=== PATIENT | male | born 1960 | race Two or more races ===

== ENCOUNTER 2024-06-15 22:41 | Inpatient (IN) | payer OTHER ==
[~2024-06-15] VITALS: Ht 182.9 cm; Wt 141.1 kg
[~2024-06-15 22:41] MED LIST: ALBU108A5 IN; APIX5TAB PO; ATOR40TA52 PO; BISO5TAB44 PO; CEPH500C PO; FURO1TAB77 PO; FURO80TA3 PO; GABA-1308 PO; INSUINJ2 SC; PANT40T PO; SEVE800T8 PO; TIOT17SP INH
[2024-06-15 22:45] VITALS: PULSE 83; RESP 11; O2SAT 100
[2024-06-15 23:26] LABS: Urine Bacteria None Seen /hpf (None Seen); Urine Blood 1+ /uL (Negative); Urine Clarity Clear (Clear); Urine Color Light-Yellow (Yellow); Urine Hyaline Cast FEW /lpf (0 - 2); Urine Mucus FEW (None Seen); Urine Protein, UAD Negative (Negative); Urine Specific Gravity 1.009 (1.001-1.035); Urine Urobilinogen Normal (Negative); Urine WBC None Seen /hpf (0 - 5); Urine pH 5.5 (5.0-9.0)
[2024-06-15] MEDS: SODIUM CHLORIDE 0.9% 1,000 ML IV ONE (23:29)
[2024-06-15 23:57] LABS: Basophils # (auto) 0.1 10 ^3/uL (0-0.2); Hemoglobin 10.3 g/dL (12.2-16.2); Monocytes # (auto) 0.9 10 ^3/uL (0-1.3); Neutrophils # (auto) 9.7 10 ^3/uL (1.6-8.6); White Blood Cell 11.7 10^3/uL (4.4-10.8)
[2024-06-15 23:59] LABS: Basophils % (auto) 0.8 % (0.0-2.0); Eosinophils # (auto) 0.2 10 ^3/uL (0-0.8); Hematocrit 34.1 % (36.0-46.0); Lymphocytes # (auto) 0.8 10 ^3/uL (0.4-5.4); Lymphocytes % (auto) 6.5 % (10.0-50.0); Mean Corpuscular Hemoglobin 29.8 pg (28.0-32.0); Mean Corpuscular Hgb Conc. 30.2 g/dL (32.0-36.0); Monocytes % (auto) 7.7 % (0.0-12.0); Nucleated Red Blood Cells % 0.6 %; Platelet Count (auto) 226 10^3/uL (140-450); Red Blood Cells 3.45 10^6/uL (4.0-5.20)
[2024-06-16] VITALS (34 sets, daily range): BP systolic 86–174; BP diastolic 30–100; PULSE 70–159; RESP 14–36; TEMP 97.4–99.4; O2SAT 85–100
[2024-06-16 00:18] LABS: Alanine Aminotransferase 27 U/L (7-40); Albumin 3.8 g/dL (3.2-4.8); Alkaline Phosphatase 153 U/L (46-116); Anion Gap 9 (5-15); Aspartate Aminotransferase 27 U/L (13-40); BUN/Creatinine Ratio 7.5 (10.0-20.0); Bilirubin, Total 0.4 mg/dL (0.2-1.0); Blood Urea Nitrogen 60 mg/dL (9-23); Calcium 9.1 mg/dL (8.7-10.4); Carbon Dioxide 31 mmol/L (20-31); Chloride 98 mmol/L (98-107); Glucose 164 mg/dL (74-106); Sodium 138 mmol/L (136-145)
[2024-06-16 00:21] LABS: Anisocytosis Slight
[2024-06-16 00:22] LABS: Stomatocytes Many
[2024-06-16 00:23] LABS: Large Platelets FEW; Platelet Estimate Adequa
[2024-06-16 00:24] LABS: INR 1.3 (0.9-1.15); Partial Thromboplastin Time 27.3 SEC (24.5-34.5); Prothrombin Time 13.5 sec (9.3-11.8)
[2024-06-16] MEDS: PIPERACILLIN-TAZOB 3.375GM 100 ML IV ONE (01:27)
[2024-06-16] MEDS: AZITHROMYCIN 500MG/ 250ML 250 ML IV ONE (02:41)
[2024-06-16] MEDS: NOREPINEPHRINE 8 MG/250ML KIT 250 ML IV SCH (02:42)
[2024-06-16] MEDS ORDERED: NITROGLYCERIN 0.4 MG SL TAB SL PRN (03:15)
[2024-06-16] MEDS ORDERED: MORPHINE SULFATE INJ 2 MG/ml SYRG IV PRN (03:15)
[2024-06-16] MEDS ORDERED: VANCOMYCIN PER PHARMACY 0 MG IV SCH (03:30)
[2024-06-16] MEDS ORDERED: DEXTROSE (50%) 50ML SYRG IV PRN ×2 (03:45→12:30)
[2024-06-16] MEDS: HEPARIN DRIP/D5W 100UNITS/ML 250 ML IV SCH ×3 (04:00→20:30)
[2024-06-16 04:27] LABS: Eosinophils # (auto) 0.3 10 ^3/uL (0-0.8); Hemoglobin 10.1 g/dL (13.5-17.5); Lymphocytes # (auto) 0.8 10 ^3/uL (0.4-5.4); Monocytes # (auto) 1.1 10 ^3/uL (0-1.3); Monocytes % (auto) 7.9 % (0.0-12.0); Nucleated Red Blood Cells % 0.3 %
[2024-06-16 04:28] LABS: Basophils # (auto) 0 10 ^3/uL (0-0.2); Basophils % (auto) 0.3 % (0.0-2.0); Eosinophils % (auto) 2.3 % (0.0-7.0); Hematocrit 33.6 % (41.0-53.0); Lymphocytes % (auto) 6.2 % (10.0-50.0); Mean Corpuscular Hemoglobin 29.7 pg (28.0-32.0); Mean Corpuscular Hgb Conc. 30.1 g/dL (32.0-36.0); Mean Corpuscular Volume 98.5 fL (80.0-100.0); Neutrophils # (auto) 11.1 10 ^3/uL (1.6-8.6); Neutrophils % (auto) 83.3 % (37.0-80.0); Platelet Count (auto) 235 10^3/uL (140-450); Red Blood Cells 3.42 10^6/uL (4.5-5.90); White Blood Cell 13.3 10^3/uL (4.4-10.8)
[2024-06-16 04:29] LABS: Red Cell Distribution Width 22.3 % (11.8-14.3)
[2024-06-16] MEDS: ACCU-CHEK COMFORT CURVE STRIP VI SCH ×2 (04:30→17:53)
[2024-06-16] MEDS: FUROSEMIDE 40 MG/4 ML VIAL IV SCH (04:31)
[2024-06-16] MEDS: HEPARIN SODIUM (PORCINE) 5000 UNITS/ML 1ML VIAL IV ONE (04:35)
[2024-06-16 04:43] LABS: INR 1.33 (0.9-1.15); Partial Thromboplastin Time 27.6 SEC (24.5-34.5); Prothrombin Time 13.8 sec (9.3-11.8)
[2024-06-16] MEDS: InsuLIN REG 1unit/0.01ml Soln (100units/ml) SC SCH ×2 (04:47→17:58)
[2024-06-16] MEDS: CEFEPIME 2GM/50ML NS 50 ML IV ONE (05:48)
[2024-06-16 08:11] LABS: COVID19 ANTIGEN SOFIA FIA NEGATIVE (NEGATIVE)
[2024-06-16 08:12] LABS: Rapid Influenza A Negative (Negative); Rapid Influenza B Negative (Negative)
[2024-06-16] MEDS ORDERED: DEXTROSE (50%) 50ML SYRG IV SCH (09:45)
[2024-06-16 10:11] LABS: Magnesium 2.4 mg/dL (1.6-2.6)
[2024-06-16 10:13] LABS: Phosphorus 7.5 mg/dL (2.4-5.1)
[2024-06-16] MEDS ORDERED: ACCU-CHEK COMFORT CURVE STRIP VI SCH (12:00)
[2024-06-16] MEDS ORDERED: InsuLIN REG 1unit/0.01ml Soln (100units/ml) SC SCH (12:00)
[2024-06-16 12:09] LABS: INR 1.36 (0.9-1.15); Prothrombin Time 14.1 sec (9.3-11.8)
[2024-06-16 12:55] LABS: Base Excess -2.6 mmol/L (-2.0-3.0)
[2024-06-16] MEDS ORDERED: MIDODRINE HCL 10 MG TAB PO PRN ×2 (13:00→16:45)
[2024-06-16 14:57] LABS: Base Excess -3.1 mmol/L (-2.0-3.0)
[2024-06-16] MEDS: MIDODRINE HCL 10 MG TAB PO SCH (17:54)
[2024-06-16 18:46] LABS: INR 1.35 (0.9-1.15); Partial Thromboplastin Time 44.5 SEC (24.5-34.5)
[2024-06-16 20:52] LABS: Base Excess 1.5 mmol/L (-2.0-3.0)
[2024-06-16] MEDS: HYDROCORTISONE ACET 25 MG RECTAL SUPP PR ONE (21:00)
[2024-06-16] MEDS: ACETAMINOPHEN 650 mg PER 20.3 mL UD GT PRN (21:35)
[2024-06-16] MEDS: NYSTATIN TOPICAL POWDER 15GM TOP SCH (22:47)
[2024-06-16] MEDS: EPOETIN ALFA-EPBX 10,000 UNIT/1ML VIAL SC ONE (22:47)
[2024-06-17] VITALS (106 sets, daily range): BP systolic 82–154; BP diastolic 23–117; PULSE 59–156; RESP 12–25; TEMP 98.3–99.1; O2SAT 60–100
[2024-06-17] MEDS: ACETAMINOPHEN 325 MG TAB PO ONE (00:31)
[2024-06-17 04:25] LABS: Basophils # (auto) 0.1 10 ^3/uL (0-0.2); Basophils % (auto) 0.7 % (0.0-2.0); Eosinophils # (auto) 0.1 10 ^3/uL (0-0.8); Eosinophils % (auto) 0.5 % (0.0-7.0); Hematocrit 33.8 % (41.0-53.0); Hemoglobin 10.6 g/dL (13.5-17.5); Lymphocytes # (auto) 0.9 10 ^3/uL (0.4-5.4); Lymphocytes % (auto) 5.6 % (10.0-50.0); Mean Corpuscular Hemoglobin 30.6 pg (28.0-32.0); Mean Corpuscular Hgb Conc. 31.4 g/dL (32.0-36.0); Mean Corpuscular Volume 97.6 fL (80.0-100.0); Monocytes # (auto) 1.3 10 ^3/uL (0-1.3); Neutrophils # (auto) 14.1 10 ^3/uL (1.6-8.6); Neutrophils % (auto) 85.2 % (37.0-80.0); Nucleated Red Blood Cells % 0.4 %; Platelet Count (auto) 238 10^3/uL (140-450); Red Blood Cells 3.47 10^6/uL (4.5-5.90); White Blood Cell 16.5 10^3/uL (4.4-10.8)
[2024-06-17 04:43] LABS: Alanine Aminotransferase 27 U/L (7-40); Albumin 3.8 g/dL (3.2-4.8); Alkaline Phosphatase 153 U/L (46-116); Anion Gap 13 (5-15); Aspartate Aminotransferase 21 U/L (13-40); BUN/Creatinine Ratio 6.9 (10.0-20.0); Blood Urea Nitrogen 52 mg/dL (9-23); Calcium 9.3 mg/dL (8.7-10.4); Carbon Dioxide 26 mmol/L (20-31); Chloride 98 mmol/L (98-107); Glucose 144 mg/dL (74-106); Sodium 137 mmol/L (136-145)
[2024-06-17 04:44] LABS: Bilirubin, Total 0.6 mg/dL (0.2-1.0)
[2024-06-17] MEDS: HEPARIN DRIP/D5W 100UNITS/ML 250 ML IV SCH (05:00)
[2024-06-17 05:06] LABS: Anisocytosis Slight; Platelet Estimate Adequate
[2024-06-17 05:08] LABS: Stomatocytes Few
[2024-06-17] MEDS ORDERED: PHENYLEPHRINE IV 250 ML IV SCH (06:45)
[2024-06-17] MEDS ORDERED: NOREPINEPHRINE BITARTRATE 32 MG in SODIUM CHL 0.9% 218 ML IV SCH (06:45)
[2024-06-17] MEDS: MIDAZOLAM DRIP 50 mg/50mL 50 ML IV ONE (07:00)
[2024-06-17] MEDS: PHENYLEPHRINE INJ 80 MG in SODIUM CHL 0.9% 242 ML IV SCH (07:00)
[2024-06-17] MEDS: NOREPINEPHRINE 8 MG/250ML KIT 250 ML IV SCH (07:00)
[2024-06-17] MEDS: PHENYLEPHRINE IV 250 ML IV ONE (07:00)
[2024-06-17 07:05] LABS: Basophils # (auto) 0.3 10 ^3/uL (0-0.2); Basophils % (auto) 1.4 % (0.0-2.0); Eosinophils # (auto) 0.1 10 ^3/uL (0-0.8); Eosinophils % (auto) 0.5 % (0.0-7.0); Hematocrit 34.7 % (41.0-53.0); Hemoglobin 10.8 g/dL (13.5-17.5); Lymphocytes # (auto) 2.3 10 ^3/uL (0.4-5.4); Lymphocytes % (auto) 12.6 % (10.0-50.0); Mean Corpuscular Hgb Conc. 31.3 g/dL (32.0-36.0); Monocytes # (auto) 1.4 10 ^3/uL (0-1.3); Monocytes % (auto) 7.8 % (0.0-12.0); Neutrophils # (auto) 14.2 10 ^3/uL (1.6-8.6); Neutrophils % (auto) 77.7 % (37.0-80.0); Nucleated Red Blood Cells % 0.8 %; Platelet Count (auto) 251 10^3/uL (140-450); Red Cell Distribution Width 22.4 % (11.8-14.3); White Blood Cell 18.2 10^3/uL (4.4-10.8)
[2024-06-17 07:07] LABS: Chloride 99 mmol/L (98-107); Potassium 4.2 mmol/L (3.5-5.1); Sodium 137 mmol/L (136-145)
[2024-06-17 07:08] LABS: Anion Gap 14 (5-15); Carbon Dioxide 24 mmol/L (20-31)
[2024-06-17 07:13] LABS: BUN/Creatinine Ratio 6.7 (10.0-20.0); Blood Urea Nitrogen 51 mg/dL (9-23); Glucose 162 mg/dL (74-106)
[2024-06-17 07:19] LABS: INR 1.43 (0.9-1.15); Partial Thromboplastin Time 49.9 SEC (24.5-34.5); Prothrombin Time 14.8 sec (9.3-11.8)
[2024-06-17 07:41] LABS: Base Excess -3.6 mmol/L (-2.0-3.0)
[2024-06-17] MEDS: fentaNYL Drip 2500mCg/250mlNS 250 ML IV SCH (09:00)
[2024-06-17] MEDS: PANTOPRAZOLE 40 MG/10 ML VIAL INJ IV SCH (10:31)
[2024-06-17] MEDS: MIDAZOLAM DRIP 50 mg/50mL 50 ML IV SCH (10:31)
[2024-06-17] MEDS: CEFEPIME 1GM/ 50ML 50 ML IV SCH (10:32)
[2024-06-17 12:28] LABS: INR 1.48 (0.9-1.15); Partial Thromboplastin Time 56.6 SEC (24.5-34.5); Prothrombin Time 15.2 sec (9.3-11.8)
[2024-06-17] MEDS: NOREPINEPHRINE BITARTRATE 32 MG in SODIUM CHL 0.9% 218 ML IV SCH (12:45)
[2024-06-17] MEDS: VANCOMYCIN 1.5GM/300ML 300 ML IV ONE (18:17)
[2024-06-17] MEDS: HEPARIN SODIUM (PORCINE) 5000 UNITS/ML 1ML VIAL SC SCH (22:51)
[2024-06-18] VITALS (109 sets, daily range): BP systolic 91–165; BP diastolic 27–77; PULSE 67–92; RESP 13–25; TEMP 98.1–99; O2SAT 93–100
[2024-06-18 04:17] LABS: Basophils # (auto) 0.1 10 ^3/uL (0-0.2); Basophils % (auto) 0.7 % (0.0-2.0); Eosinophils # (auto) 0.3 10 ^3/uL (0-0.8); Hematocrit 32.4 % (41.0-53.0); Hemoglobin 10.3 g/dL (13.5-17.5); Lymphocytes # (auto) 0.7 10 ^3/uL (0.4-5.4); Lymphocytes % (auto) 5.2 % (10.0-50.0); Mean Corpuscular Hemoglobin 30.1 pg (28.0-32.0); Mean Corpuscular Hgb Conc. 31.8 g/dL (32.0-36.0); Mean Corpuscular Volume 94.6 fL (80.0-100.0); Monocytes # (auto) 1.5 10 ^3/uL (0-1.3); Neutrophils # (auto) 10.9 10 ^3/uL (1.6-8.6); Neutrophils % (auto) 81.1 % (37.0-80.0); Nucleated Red Blood Cells % 0.2 %; Platelet Count (auto) 224 10^3/uL (140-450); Red Blood Cells 3.42 10^6/uL (4.5-5.90); Red Cell Distribution Width 21.2 % (11.8-14.3); White Blood Cell 13.4 10^3/uL (4.4-10.8)
[2024-06-18 04:28] LABS: Alanine Aminotransferase 22 U/L (7-40); Albumin 3.4 g/dL (3.2-4.8); Alkaline Phosphatase 130 U/L (46-116); Anion Gap 13 (5-15); Aspartate Aminotransferase 15 U/L (13-40); BUN/Creatinine Ratio 7.9 (10.0-20.0); Calcium 9.2 mg/dL (8.7-10.4); Carbon Dioxide 25 mmol/L (20-31); Chloride 99 mmol/L (98-107); Glucose 114 mg/dL (74-106); Magnesium 2.2 mg/dL (1.6-2.6); Potassium 3.9 mmol/L (3.5-5.1); Sodium 137 mmol/L (136-145)
[2024-06-18 04:29] LABS: Bilirubin, Total 0.7 mg/dL (0.2-1.0); Total Protein 6.3 g/dL (5.7-8.2)
[2024-06-18 04:32] LABS: Blood Urea Nitrogen 68 mg/dL (9-23)
[2024-06-18 06:19] LABS: Base Excess -1.6 mmol/L (-2.0-3.0)
[2024-06-18] MEDS: SODIUM CHL 0.9% 1000 ML BAG XX ONE (07:00)
[2024-06-18] MEDS ORDERED: ALBUMIN 25% 100 ML IV PRN (15:00)
[2024-06-18] MEDS: ALBUMIN 25% 100 ML IV PRN (15:23)
[2024-06-18] MEDS: Nepro With Carb Steady 1 Liter Bottle GT SCH (17:16)
[2024-06-18] MEDS: EPOETIN ALFA-EPBX 4,000 UNIT/ML VIAL SC ONE (20:38)
[2024-06-19] VITALS (108 sets, daily range): BP systolic 95–127; BP diastolic 18–78; PULSE 75–100; RESP 15–30; TEMP 98.6–99.5; O2SAT 88–100
[2024-06-19 04:12] LABS: Basophils # (auto) 0.1 10 ^3/uL (0-0.2); Basophils % (auto) 1.2 % (0.0-2.0); Eosinophils # (auto) 0.5 10 ^3/uL (0-0.8); Eosinophils % (auto) 4.3 % (0.0-7.0); Hematocrit 32.2 % (41.0-53.0); Hemoglobin 10.2 g/dL (13.5-17.5); Lymphocytes # (auto) 0.9 10 ^3/uL (0.4-5.4); Lymphocytes % (auto) 8.1 % (10.0-50.0); Mean Corpuscular Hemoglobin 30.2 pg (28.0-32.0); Mean Corpuscular Hgb Conc. 31.7 g/dL (32.0-36.0); Mean Corpuscular Volume 95.3 fL (80.0-100.0); Monocytes # (auto) 1.4 10 ^3/uL (0-1.3); Monocytes % (auto) 13.2 % (0.0-12.0); Neutrophils % (auto) 73.2 % (37.0-80.0); Nucleated Red Blood Cells % 0.1 %; Platelet Count (auto) 198 10^3/uL (140-450); Red Blood Cells 3.38 10^6/uL (4.5-5.90); Red Cell Distribution Width 21.5 % (11.8-14.3); White Blood Cell 10.9 10^3/uL (4.4-10.8)
[2024-06-19 04:15] LABS: Chloride 101 mmol/L (98-107); Potassium 3.9 mmol/L (3.5-5.1); Sodium 140 mmol/L (136-145)
[2024-06-19 04:16] LABS: Anion Gap 14 (5-15); Calcium 9.1 mg/dL (8.7-10.4); Carbon Dioxide 25 mmol/L (20-31)
[2024-06-19 04:21] LABS: Glucose 122 mg/dL (74-106)
[2024-06-19 04:22] LABS: BUN/Creatinine Ratio 7.7 (10.0-20.0); Blood Urea Nitrogen 64 mg/dL (9-23); Magnesium 2.4 mg/dL (1.6-2.6)
[2024-06-19] MEDS: SODIUM CHL 0.9% 1000 ML BAG XX ONE (07:10)
[2024-06-19 08:16] LABS: Base Excess -3.5 mmol/L (-2.0-3.0)
[2024-06-19] MEDS: METOCLOPRAMIDE HCL 5MG/ml INJ 2ml VIAL IV ONE (13:25)
[2024-06-19] MEDS: VANCOMYCIN 500 MG in D5W 5% 100 ML IV ONE (14:54)
[2024-06-19] MEDS: LIDOCAINE 1% (LOCAL ANESTH.) PF 5ml SDV ID ONE (16:03)
[2024-06-19] MEDS ORDERED: METOPROLOL TARTRATE 1MG/1ML-5ML VIAL IV ONE (16:30)
[2024-06-19] MEDS ORDERED: ACETAMINOPHEN 650 mg PER 20.3 mL UD GT PRN (16:30)
[2024-06-19] MEDS: METOCLOPRAMIDE HCL 5MG/ml INJ 2ml VIAL IV SCH (20:47)
[2024-06-19] MEDS: EPOETIN ALFA-EPBX 4,000 UNIT/ML VIAL SC ONE (20:48)
[2024-06-19] MEDS: SODIUM CHLOR 0.9% PF (SALINE LOCK) 10ML VIAL/SYR IV SCH (20:49)
[2024-06-20] VITALS (106 sets, daily range): BP systolic 96–130; BP diastolic 18–58; PULSE 80–105; RESP 15–29; TEMP 98.7–100.2; O2SAT 88–100
[2024-06-20 04:44] LABS: Basophils # (auto) 0.1 10 ^3/uL (0-0.2); Basophils % (auto) 0.5 % (0.0-2.0); Eosinophils # (auto) 0.3 10 ^3/uL (0-0.8); Eosinophils % (auto) 2.3 % (0.0-7.0); Hematocrit 33.7 % (41.0-53.0); Hemoglobin 10.5 g/dL (13.5-17.5); Lymphocytes # (auto) 0.7 10 ^3/uL (0.4-5.4); Lymphocytes % (auto) 4.8 % (10.0-50.0); Mean Corpuscular Hemoglobin 29.9 pg (28.0-32.0); Mean Corpuscular Hgb Conc. 31.2 g/dL (32.0-36.0); Mean Corpuscular Volume 95.9 fL (80.0-100.0); Monocytes # (auto) 1.7 10 ^3/uL (0-1.3); Monocytes % (auto) 11.9 % (0.0-12.0); Neutrophils # (auto) 11.3 10 ^3/uL (1.6-8.6); Neutrophils % (auto) 80.5 % (37.0-80.0); Platelet Count (auto) 188 10^3/uL (140-450); Red Blood Cells 3.51 10^6/uL (4.5-5.90); Red Cell Distribution Width 21.4 % (11.8-14.3); White Blood Cell 14.1 10^3/uL (4.4-10.8)
[2024-06-20 05:03] LABS: Alanine Aminotransferase 16 U/L (7-40); Albumin 3.5 g/dL (3.2-4.8); Alkaline Phosphatase 139 U/L (46-116); Anion Gap 14 (5-15); Aspartate Aminotransferase 10 U/L (13-40); BUN/Creatinine Ratio 7.4 (10.0-20.0); Bilirubin, Total 0.6 mg/dL (0.2-1.0); Blood Urea Nitrogen 57 mg/dL (9-23); Calcium 9.1 mg/dL (8.7-10.4); Carbon Dioxide 24 mmol/L (20-31); Chloride 101 mmol/L (98-107); Glucose 137 mg/dL (74-106); Magnesium 2.4 mg/dL (1.6-2.6); Phosphorus 7.5 mg/dL (2.4-5.1); Potassium 4.1 mmol/L (3.5-5.1); Sodium 139 mmol/L (136-145); Total Protein 6.4 g/dL (5.7-8.2)
[2024-06-20 05:27] LABS: Platelet Estimate Adequate
[2024-06-20] MEDS: IPRATROPIUM BROM 0.5 MG/2.5ML INH SOL NEB PRN (21:51)
[2024-06-20] MEDS: ALBUTEROL SULF 2.5 MG/0.5ML(0.5%) NEB SOLN NEB PRN (21:51)
[2024-06-21] VITALS (107 sets, daily range): BP systolic 94–131; BP diastolic 30–63; PULSE 83–112; RESP 11–31; TEMP 98.7–100.6; O2SAT 91–100
[2024-06-21 04:27] LABS: Basophils # (auto) 0.1 10 ^3/uL (0-0.2); Basophils % (auto) 0.5 % (0.0-2.0); Eosinophils # (auto) 0.3 10 ^3/uL (0-0.8); Eosinophils % (auto) 2.4 % (0.0-7.0); Hematocrit 32.6 % (41.0-53.0); Hemoglobin 10.5 g/dL (13.5-17.5); Lymphocytes # (auto) 0.6 10 ^3/uL (0.4-5.4); Lymphocytes % (auto) 4.4 % (10.0-50.0); Mean Corpuscular Hemoglobin 30.6 pg (28.0-32.0); Mean Corpuscular Hgb Conc. 32.3 g/dL (32.0-36.0); Mean Corpuscular Volume 94.6 fL (80.0-100.0); Monocytes # (auto) 1.6 10 ^3/uL (0-1.3); Neutrophils # (auto) 11.8 10 ^3/uL (1.6-8.6); Neutrophils % (auto) 81.7 % (37.0-80.0); Platelet Count (auto) 182 10^3/uL (140-450); Red Blood Cells 3.44 10^6/uL (4.5-5.90); Red Cell Distribution Width 20.7 % (11.8-14.3); White Blood Cell 14.4 10^3/uL (4.4-10.8)
[2024-06-21 04:44] LABS: Alanine Aminotransferase 12 U/L (7-40); Albumin 3.5 g/dL (3.2-4.8); Alkaline Phosphatase 131 U/L (46-116); Anion Gap 14 (5-15); Aspartate Aminotransferase 14 U/L (13-40); BUN/Creatinine Ratio 7.2 (10.0-20.0); Calcium 9.1 mg/dL (8.7-10.4); Carbon Dioxide 24 mmol/L (20-31); Chloride 102 mmol/L (98-107); Glucose 146 mg/dL (74-106); Magnesium 2.4 mg/dL (1.6-2.6); Potassium 4.3 mmol/L (3.5-5.1); Sodium 140 mmol/L (136-145)
[2024-06-21 04:45] LABS: Bilirubin, Total 0.5 mg/dL (0.2-1.0); Blood Urea Nitrogen 68 mg/dL (9-23); Phosphorus 8.7 mg/dL (2.4-5.1); Total Protein 6.4 g/dL (5.7-8.2)
[2024-06-21 06:58] LABS: Base Excess -3.3 mmol/L (-2.0-3.0)
[2024-06-21] MEDS: SODIUM CHL 0.9% 1000 ML BAG XX ONE (14:52)
[2024-06-21] MEDS: ALBUMIN 25% 100 ML IV ONE (15:13)
[2024-06-21] MEDS ORDERED: DOCUSATE ORAL LIQUID 100 MG/10 ML UD GT PRN (16:00)
[2024-06-21] MEDS: VANCOMYCIN 500 MG in D5W 5% 100 ML IV ONE (20:24)
[2024-06-22] VITALS (109 sets, daily range): BP systolic 89–136; BP diastolic 26–69; PULSE 75–110; RESP 17–33; TEMP 98.6–100.3; O2SAT 92–100
[2024-06-22 07:46] LABS: Basophils # (auto) 0.1 10 ^3/uL (0-0.2); Basophils % (auto) 0.6 % (0.0-2.0); Eosinophils # (auto) 0.5 10 ^3/uL (0-0.8); Eosinophils % (auto) 3.7 % (0.0-7.0); Hematocrit 33.3 % (41.0-53.0); Hemoglobin 10.4 g/dL (13.5-17.5); Lymphocytes # (auto) 0.6 10 ^3/uL (0.4-5.4); Lymphocytes % (auto) 4.1 % (10.0-50.0); Mean Corpuscular Hgb Conc. 31.3 g/dL (32.0-36.0); Monocytes # (auto) 1.4 10 ^3/uL (0-1.3); Monocytes % (auto) 10.2 % (0.0-12.0); Neutrophils # (auto) 11.2 10 ^3/uL (1.6-8.6); Neutrophils % (auto) 81.4 % (37.0-80.0); Nucleated Red Blood Cells % 0.1 %; Platelet Count (auto) 170 10^3/uL (140-450); Red Blood Cells 3.47 10^6/uL (4.5-5.90); Red Cell Distribution Width 20.9 % (11.8-14.3); White Blood Cell 13.8 10^3/uL (4.4-10.8)
[2024-06-22 08:02] LABS: Alanine Aminotransferase 16 U/L (7-40); Albumin 3.5 g/dL (3.2-4.8); Alkaline Phosphatase 143 U/L (46-116); Anion Gap 13 (5-15); Aspartate Aminotransferase 22 U/L (13-40); BUN/Creatinine Ratio 7.2 (10.0-20.0); Calcium 9.4 mg/dL (8.7-10.4); Carbon Dioxide 22 mmol/L (20-31); Chloride 104 mmol/L (98-107); Glucose 149 mg/dL (74-106); Magnesium 2.5 mg/dL (1.6-2.6); Potassium 4.4 mmol/L (3.5-5.1); Sodium 139 mmol/L (136-145)
[2024-06-22 08:03] LABS: Bilirubin, Total 0.5 mg/dL (0.2-1.0); Phosphorus 7.5 mg/dL (2.4-5.1); Total Protein 6.5 g/dL (5.7-8.2)
[2024-06-22 08:06] LABS: Blood Urea Nitrogen 54 mg/dL (9-23)
[2024-06-22] MEDS: ALBUMIN 25% 100 ML IV ONE (08:49)
[2024-06-22 12:08] LABS: Base Excess -0.5 mmol/L (-2.0-3.0)
[2024-06-22] MEDS: VANCOMYCIN 500 MG in D5W 5% 100 ML IV ONE (16:22)
[2024-06-23] VITALS (106 sets, daily range): BP systolic 83–128; BP diastolic 19–71; PULSE 59–97; RESP 14–56; TEMP 97.7–100; O2SAT 90–100
[2024-06-23 04:44] LABS: Basophils # (auto) 0.1 10 ^3/uL (0-0.2); Basophils % (auto) 0.6 % (0.0-2.0); Eosinophils # (auto) 0.6 10 ^3/uL (0-0.8); Eosinophils % (auto) 4.3 % (0.0-7.0); Hematocrit 33.4 % (41.0-53.0); Hemoglobin 10.6 g/dL (13.5-17.5); Lymphocytes # (auto) 0.6 10 ^3/uL (0.4-5.4); Lymphocytes % (auto) 4.4 % (10.0-50.0); Mean Corpuscular Hemoglobin 30.2 pg (28.0-32.0); Mean Corpuscular Hgb Conc. 31.8 g/dL (32.0-36.0); Mean Corpuscular Volume 95.1 fL (80.0-100.0); Monocytes # (auto) 1.3 10 ^3/uL (0-1.3); Monocytes % (auto) 9.5 % (0.0-12.0); Neutrophils # (auto) 11.2 10 ^3/uL (1.6-8.6); Neutrophils % (auto) 81.2 % (37.0-80.0); Nucleated Red Blood Cells % 0.1 %; Platelet Count (auto) 179 10^3/uL (140-450); Red Blood Cells 3.51 10^6/uL (4.5-5.90); Red Cell Distribution Width 19.8 % (11.8-14.3); White Blood Cell 13.7 10^3/uL (4.4-10.8)
[2024-06-23 08:53] LABS: Base Excess -1.4 mmol/L (-2.0-3.0)
[2024-06-23 11:05] LABS: Anion Gap 11 (5-15); Carbon Dioxide 23 mmol/L (20-31); Chloride 100 mmol/L (98-107); Potassium 4.1 mmol/L (3.5-5.1)
[2024-06-23 11:06] LABS: Calcium 9.1 mg/dL (8.7-10.4); Sodium 134 mmol/L (136-145)
[2024-06-23 11:11] LABS: BUN/Creatinine Ratio 6.3 (10.0-20.0); Blood Urea Nitrogen 45 mg/dL (9-23)
[2024-06-23 11:13] LABS: Glucose 317 mg/dL (74-106)
[2024-06-23] MEDS: VANCOMYCIN 500 MG in D5W 5% 100 ML IV ONE (14:09)
[2024-06-24] VITALS (108 sets, daily range): BP systolic 67–144; BP diastolic 19–87; PULSE 69–114; RESP 12–36; TEMP 98.3; O2SAT 93–100
[2024-06-24 03:53] LABS: Basophils # (auto) 0.1 10 ^3/uL (0-0.2); Basophils % (auto) 0.9 % (0.0-2.0); Eosinophils # (auto) 0.5 10 ^3/uL (0-0.8); Eosinophils % (auto) 4.3 % (0.0-7.0); Hematocrit 32.7 % (41.0-53.0); Hemoglobin 10.5 g/dL (13.5-17.5); Lymphocytes # (auto) 0.6 10 ^3/uL (0.4-5.4); Lymphocytes % (auto) 4.6 % (10.0-50.0); Mean Corpuscular Hemoglobin 30.3 pg (28.0-32.0); Mean Corpuscular Volume 94.8 fL (80.0-100.0); Neutrophils # (auto) 10.4 10 ^3/uL (1.6-8.6); Neutrophils % (auto) 82.2 % (37.0-80.0); Platelet Count (auto) 213 10^3/uL (140-450); Red Blood Cells 3.45 10^6/uL (4.5-5.90); White Blood Cell 12.6 10^3/uL (4.4-10.8)
[2024-06-24 04:01] LABS: Chloride 104 mmol/L (98-107); Potassium 4.2 mmol/L (3.5-5.1)
[2024-06-24 04:03] LABS: Anion Gap 13 (5-15); BUN/Creatinine Ratio 7.6 (10.0-20.0); Calcium 9.3 mg/dL (8.7-10.4); Carbon Dioxide 24 mmol/L (20-31)
[2024-06-24 04:12] LABS: Blood Urea Nitrogen 64 mg/dL (9-23); Sodium 141 mmol/L (136-145)
[2024-06-24 04:18] LABS: Glucose 149 mg/dL (74-106)
[2024-06-24 06:43] LABS: Base Excess -4.8 mmol/L (-2.0-3.0)
[2024-06-24] MEDS: SODIUM CHL 0.9% 1000 ML BAG XX ONE (07:00)
[2024-06-24] MEDS ORDERED: NOREPINEPHRINE 8 MG/250ML KIT 250 ML IV SCH (08:45)
[2024-06-24 13:22] LABS: Base Excess -1.4 mmol/L (-2.0-3.0)
[2024-06-24 17:28] LABS: Base Excess 0.6 mmol/L (-2.0-3.0)
[2024-06-24] MEDS: ACETAMINOPHEN IV 1000 MG/100ML (10MG/ML) IV ONE (18:10)
[2024-06-24] MEDS: EPOETIN ALFA-EPBX 4,000 UNIT/ML VIAL SC ONE (21:27)
[2024-06-24] MEDS ORDERED: KETOROLAC TROMETH 30 MG/ML 1ML VIAL IV PRN (21:45)
[2024-06-24] MEDS: APIXABAN 2.5 MG TAB GT SCH (22:04)
[2024-06-25] VITALS (101 sets, daily range): BP systolic 87–137; BP diastolic 24–59; PULSE 86–145; RESP 13–33; TEMP 36.9; O2SAT 88–100
[2024-06-25 04:02] LABS: Basophils # (auto) 0.1 10 ^3/uL (0-0.2); Basophils % (auto) 0.7 % (0.0-2.0); Eosinophils # (auto) 0.7 10 ^3/uL (0-0.8); Eosinophils % (auto) 4.7 % (0.0-7.0); Hematocrit 35.9 % (41.0-53.0); Hemoglobin 11.5 g/dL (13.5-17.5); Lymphocytes # (auto) 0.8 10 ^3/uL (0.4-5.4); Lymphocytes % (auto) 5.7 % (10.0-50.0); Mean Corpuscular Hemoglobin 30.3 pg (28.0-32.0); Mean Corpuscular Hgb Conc. 31.9 g/dL (32.0-36.0); Monocytes # (auto) 1.5 10 ^3/uL (0-1.3); Monocytes % (auto) 10.6 % (0.0-12.0); Neutrophils # (auto) 10.9 10 ^3/uL (1.6-8.6); Neutrophils % (auto) 78.3 % (37.0-80.0); Platelet Count (auto) 238 10^3/uL (140-450); Red Blood Cells 3.78 10^6/uL (4.5-5.90); Red Cell Distribution Width 19.2 % (11.8-14.3)
[2024-06-25 04:06] LABS: Chloride 104 mmol/L (98-107); Potassium 3.8 mmol/L (3.5-5.1); Sodium 139 mmol/L (136-145)
[2024-06-25 04:07] LABS: Anion Gap 11 (5-15); Carbon Dioxide 24 mmol/L (20-31)
[2024-06-25 04:08] LABS: Calcium 9.5 mg/dL (8.7-10.4)
[2024-06-25 04:12] LABS: BUN/Creatinine Ratio 5.6 (10.0-20.0); Glucose 124 mg/dL (74-106)
[2024-06-25 04:13] LABS: Blood Urea Nitrogen 44 mg/dL (9-23)
[2024-06-26] MEDS ORDERED: SODIUM CHL 0.9% 1000 ML BAG XX ONE (07:00)
== END 2024-06-25 22:53 | disposition short-term general hospital (02) | DRG 870 ==
LOC: EDBD 22:41 → ER 22:41 → TELE 06-16 03:15 → ICU WEST 06-16 03:15 → EDSEX 06-16 03:15 → ICU WEST 06-16 17:41
PROVIDERS: ADMIT Internal Medicine; ATTEND Internal Medicine
PROC: 06HY33Z Insertion of Infusion Device into Lower Vein, Percutaneous Approach (ICD-10-PCS; 2024-06-16)
PROC: B44FZZZ Ultrasonography of Right Lower Extremity Arteries (ICD-10-PCS; 2024-06-16)
PROC: 5A09357 Assistance with Respiratory Ventilation, Less than 24 Consecutive Hours, Continuous Positive Airway Pressure (ICD-10-PCS; 2024-06-16)
PROC: 5A1D70Z Performance of Urinary Filtration, Intermittent, Less than 6 Hours Per Day (ICD-10-PCS; 2024-06-16)
PROC: 5A1955Z Respiratory Ventilation, Greater than 96 Consecutive Hours (ICD-10-PCS; principal; 2024-06-17)
PROC: 0BH17EZ Insertion of Endotracheal Airway into Trachea, Via Natural or Artificial Opening (ICD-10-PCS; 2024-06-17)
PROC: 5A12012 Performance of Cardiac Output, Single, Manual (ICD-10-PCS; 2024-06-17)
PROC: 5A2204Z Restoration of Cardiac Rhythm, Single (ICD-10-PCS; 2024-06-17)
PROC: 5A1D70Z Performance of Urinary Filtration, Intermittent, Less than 6 Hours Per Day (ICD-10-PCS; 2024-06-18)
PROC: 5A1D70Z Performance of Urinary Filtration, Intermittent, Less than 6 Hours Per Day (ICD-10-PCS; 2024-06-19)
PROC: 06HY33Z Insertion of Infusion Device into Lower Vein, Percutaneous Approach (ICD-10-PCS; 2024-06-19)
PROC: B54BZZA Ultrasonography of Right Lower Extremity Veins, Guidance (ICD-10-PCS; 2024-06-19)
PROC: 5A1D70Z Performance of Urinary Filtration, Intermittent, Less than 6 Hours Per Day (ICD-10-PCS; 2024-06-21)
PROC: 5A1D70Z Performance of Urinary Filtration, Intermittent, Less than 6 Hours Per Day (ICD-10-PCS; 2024-06-22)
PROC: 5A09357 Assistance with Respiratory Ventilation, Less than 24 Consecutive Hours, Continuous Positive Airway Pressure (ICD-10-PCS; 2024-06-24)
PROC: 5A1D70Z Performance of Urinary Filtration, Intermittent, Less than 6 Hours Per Day (ICD-10-PCS; 2024-06-24)
DX: A41.9 Sepsis, unspecified organism (principal); I21.A1 Myocardial infarction type 2; I46.9 Cardiac arrest, cause unspecified; J18.9 Pneumonia, unspecified organism; J96.21 Acute and chronic respiratory failure with hypoxia; R65.21 Severe sepsis with septic shock; N18.6 End stage renal disease; J96.22 Acute and chronic respiratory failure with hypercapnia; I50.43 Acute on chronic combined systolic (congestive) and diastolic (congestive) heart failure; G92.8 Other toxic encephalopathy; I13.2 Hypertensive heart and chronic kidney disease with heart failure and with stage 5 chronic kidney disease, or end stage renal disease; L03.116 Cellulitis of left lower limb; L03.115 Cellulitis of right lower limb; J44.0 Chronic obstructive pulmonary disease with (acute) lower respiratory infection; N25.81 Secondary hyperparathyroidism of renal origin; Z68.42 Body mass index [BMI] 45.0-49.9, adult; D63.1 Anemia in chronic kidney disease; E11.22 Type 2 diabetes mellitus with diabetic chronic kidney disease; E66.01 Morbid (severe) obesity due to excess calories; I48.0 Paroxysmal atrial fibrillation; I27.21 Secondary pulmonary arterial hypertension; L89.152 Pressure ulcer of sacral region, stage 2; K59.00 Constipation, unspecified; G89.29 Other chronic pain; I25.10 Atherosclerotic heart disease of native coronary artery without angina pectoris; Z99.2 Dependence on renal dialysis; Z98.61 Coronary angioplasty status; Z95.1 Presence of aortocoronary bypass graft; Z79.4 Long term (current) use of insulin
CPT/HCPCS: 36415; 36569; 36600; 70450; 71045; 71250; 73700; 74176; 76937; 80048; 80053; 80202; 80307; 80320; 81001; 82270; 82565; 82805; 82962; 83036; 83605; 83735; 83880; 84100; 84478; 84484; 85025; 85379; 85610; 85730; 87040; 87070; 87081; 87205; 87340; 87426; 87804; 90935; 92610; 92950; 92960; 93005; 93306; 93970; 94002; 94003; 94640; 94660; G0378; J0131; J0692; J1815; J2470; J2543; J7060; P9047